=== PATIENT | male | born 1970 | race Caucasian/White ===

== ENCOUNTER 2016-05-18 06:15 | Emergency (ER) | payer MEDICARE ==
[2016-01-07 15:24] VITALS: BMI 22.9
[~2016-05-18 06:15] MED LIST: DILAUDID2 MG PO; FERROUS SULFAT325 MG PO; PROTONIX40 MG PO; TOPROL XL25 MG PO
[2016-05-18 07:03] LABS: BASOPHILS 0.2 % (0.0-2.0); EOSINOPHILS 3.4 % (0-7); HEMATOCRIT 32.8 % (42.0-54.0); HEMOGLOBIN 9.8 g/dL (13.5-17.5); IMMATURE GRANULOCYTES 0.2 % (0-5); LYMPHOCYTES 11.7 % (15-50); MCH 20.8 pg (26.0-34.0); MCHC 29.9 g/dL (31.0-37.0); MCV 69.6 fL (80.0-100.0); MEAN PLATELET VOLUME 8.6 fL (7.4-10.4); NEUTROPHILS 78.5 % (40-80); RBC 4.71 10x6/uL (4.20-6.10); RDW 16.2 % (11.5-14.5); WBC 12.8 10x3/uL (4.8-10.8)
[2016-05-18 07:05] LABS: PLATELET COUNT 379 10x3/uL (130-400)
[2016-05-18 07:16] LABS: INR 1.1 (0.85-1.17); PROTIME 14.1 SECONDS (11.6-15.0)
[2016-05-18 07:17] LABS: ALBUMIN 3.3 g/dL (3.4-5.0); ALKALINE PHOSPHATASE 148 U/L (46-116); ALT (SGPT) 18 U/L (10-68); AMYLASE - SERUM 52 U/L (25-115); CALC OSMOLALITY 274 mosm/kg (275-300); CALCIUM 9.4 mg/dL (8.5-10.1); CARBON DIOXIDE 29.6 mmol/L (21.0-32.0); CHLORIDE - SERUM 98 mmol/L (98-107); GLUCOSE 129 mg/dL (74-106); LIPASE 135 U/L (73-393); MAGNESIUM - SERUM 1.4 mg/dL (1.8-2.4); POTASSIUM - SERUM 3.1 mmol/L (3.5-5.1); PROTEIN - SERUM 7.8 g/dL (6.4-8.2); SODIUM 136 mmol/L (136-145); UREA NITROGEN 14 mg/dL (7-18); eGFR NON AFRICAN AMERICAN 85 mL/min (90-120)
== END 2016-05-18 08:13 | disposition home or self-care (01) ==
LOC: D.ER 06:15
PROVIDERS: Surgery
DX: K92.2 Gastrointestinal hemorrhage, unspecified (principal); K22.70 Barrett's esophagus without dysplasia; K27.9 Peptic ulcer, site unspecified, unspecified as acute or chronic, without hemorrhage or perforation

== ENCOUNTER 2016-11-12 10:43 | Emergency (ER) | payer MEDICARE ==
[2016-01-07 15:24] VITALS: BMI 22.9
[2016-11-12 11:15] LABS: BASOPHILS 0.3 % (0-2); EOSINOPHILS 1.3 % (0-7); HEMATOCRIT 35.1 % (42.0-54.0); HEMOGLOBIN 10.2 g/dL (13.5-17.5); IMMATURE GRANULOCYTES 0.2 % (0-5); LYMPHOCYTES 10.8 % (15-50); MCHC 29.1 g/dL (31.0-37.0); MCV 67.8 fL (80.0-100.0); MEAN PLATELET VOLUME 8.9 fL (7.4-10.4); NEUTROPHILS 78.4 % (40-80); RBC 5.18 10x6/uL (4.20-6.10); WBC 12.2 10x3/uL (4.8-10.8)
[2016-11-12 11:16] LABS: MCH 19.7 pg (26.0-34.0); PLATELET COUNT 579 10x3/uL (130-400)
[2016-11-12 12:14] LABS: ALBUMIN 3.6 g/dL (3.4-5.0); ALKALINE PHOSPHATASE 147 U/L (46-116); ALT (SGPT) 26 U/L (10-68); CALC OSMOLALITY 272 mosm/kg (275-300); CARBON DIOXIDE 36.2 mmol/L (21.0-32.0); CHLORIDE - SERUM 94 mmol/L (98-107); CREATINE KINASE 27 UL (21-232); CREATININE - SERUM 1.5 mg/dL (0.6-1.3); GLUCOSE 131 mg/dL (74-106); POTASSIUM - SERUM 3.5 mmol/L (3.5-5.1); PROTEIN - SERUM 8.6 g/dL (6.4-8.2); SODIUM 134 mmol/L (136-145); TROPONIN-I < 0.017 ng/mL (0.000-0.060); UREA NITROGEN 20 mg/dL (7-18); eGFR NON AFRICAN AMERICAN 53 mL/min (90-120)
[2016-11-12 12:15] LABS: CALCIUM 12.2 mg/dL (8.5-10.1)
[2016-11-12 12:15] LABS: AMYLASE - SERUM 48 U/L (25-115); LIPASE 129 U/L (73-393)
[2016-11-12 16:44] LABS: UDS - AMPHET POSITIVE QUAL (NEGATIVE); UDS - BARB NEGATIVE QUAL (NEGATIVE); UDS - BENZO NEGATIVE QUAL (NEGATIVE); UDS - COCAINE NEGATIVE QUAL (NEGATIVE); UDS - METH NEGATIVE QUAL (NEGATIVE); UDS - OPIATE POSITIVE QUAL (NEGATIVE); UDS - PCP NEGATIVE QUAL (NEGATIVE); UDS - THC NEGATIVE QUAL (NEGATIVE)
== END 2016-11-12 18:13 | disposition home or self-care (01) ==
LOC: D.ER 10:43
PROVIDERS: Emergency Medicine; Nurse Practitioner Family
DX: R07.89 Other chest pain (principal); E83.52 Hypercalcemia; F17.200 Nicotine dependence, unspecified, uncomplicated; I45.10 Unspecified right bundle-branch block

== ENCOUNTER 2017-01-12 17:59 | Emergency (ER) | payer SELFPAY ==
[2016-01-07 15:24] VITALS: BMI 22.9
[2017-01-12 18:30] LABS: BASOPHILS 0.5 % (0-2); EOSINOPHILS 1.8 % (0-7); HEMOGLOBIN 9.6 g/dL (13.5-17.5); IMMATURE GRANULOCYTES 0.1 % (0-5); MCHC 28.2 g/dL (31.0-37.0); MCV 65.3 fL (80.0-100.0); MEAN PLATELET VOLUME 8.5 fL (7.4-10.4); NEUTROPHILS 72.6 % (40-80); PLATELET COUNT 526 10x3/uL (130-400); RBC 5.21 10x6/uL (4.20-6.10); RDW 17.5 % (11.5-14.5); WBC 9.4 10x3/uL (4.8-10.8)
[2017-01-12 18:31] LABS: MCH 18.4 pg (26.0-34.0)
[2017-01-12 19:03] LABS: ALBUMIN 3.9 g/dL (3.4-5.0); ALKALINE PHOSPHATASE 189 U/L (46-116); ALT (SGPT) 19 U/L (10-68); AMYLASE - SERUM 55 U/L (25-115); BILIRUBIN - TOTAL 0.25 mg/dL (0.2-1.3); CALC OSMOLALITY 273 mosm/kg (275-300); CALCIUM 10.8 mg/dL (8.5-10.1); CARBON DIOXIDE 26.8 mmol/L (21.0-32.0); CHLORIDE - SERUM 98 mmol/L (98-107); CREATININE - SERUM 0.8 mg/dL (0.6-1.3); GLUCOSE 113 mg/dL (74-106); LIPASE 139 U/L (73-393); POTASSIUM - SERUM 3.9 mmol/L (3.5-5.1); SODIUM 136 mmol/L (136-145); UREA NITROGEN 16 mg/dL (7-18); eGFR NON AFRICAN AMERICAN > 90 mL/min (90-120)
[2017-01-12 20:02] LABS: APTT 33.6 SECONDS (22.8-39.4)
[2017-01-12 20:09] LABS: APPEARANCE HAZY (CLEAR); BILIRUBIN NEGATIVE (NEGATIVE); COLOR STRAW (YELLOW); GLUCOSE NEGATIVE (NEGATIVE); KETONE NEGATIVE (NEGATIVE); NITRITE NEGATIVE (NEGATIVE); PROTEIN NEGATIVE (NEGATIVE); UROBILINOGEN NORMAL (NORMAL)
[2017-01-12 20:18] LABS: UDS - AMPHET POSITIVE QUAL (NEGATIVE); UDS - BARB NEGATIVE QUAL (NEGATIVE); UDS - BENZO NEGATIVE QUAL (NEGATIVE); UDS - COCAINE NEGATIVE QUAL (NEGATIVE); UDS - OPIATE NEGATIVE QUAL (NEGATIVE); UDS - PCP NEGATIVE QUAL (NEGATIVE); UDS - THC POSITIVE QUAL (NEGATIVE)
== END 2017-01-12 20:48 | disposition home or self-care (01) ==
LOC: D.ER 17:59
PROVIDERS: Emergency Medicine; Family Medicine
DX: K27.9 Peptic ulcer, site unspecified, unspecified as acute or chronic, without hemorrhage or perforation (principal); K20.9 Esophagitis, unspecified; Z85.01 Personal history of malignant neoplasm of esophagus

== ENCOUNTER → 2017-08-02 12:45 | Outpatient (CLI) | payer OTHER ==
[2016-01-07 15:24] VITALS: BMI 22.9
== END | disposition home or self-care (01) ==
LOC: D.RAD 12:45
DX: Z02.71 Encounter for disability determination (principal)

== ENCOUNTER 2018-10-31 16:24 | Inpatient (IN) | payer MEDICARE ==
[2018-10-31] VITALS (10 sets, daily range): BP systolic 88–144; BP diastolic 58–83; BMI 24.2
[~2018-10-31] VITALS: Ht 177.8 cm; Wt 75.6 kg
[2018-10-31] MEDS ORDERED: CARAFATE1 G PO (16:30)
[2018-10-31] MEDS ORDERED: OMEPRAZOLE40 MG PO (16:31)
[2018-10-31 18:28] LABS: APPEARANCE CLEAR (CLEAR); BILIRUBIN NEGATIVE (NEGATIVE); COLOR YELLOW (YELLOW); GLUCOSE NEGATIVE (NEGATIVE); KETONE NEGATIVE (NEGATIVE); NITRITE NEGATIVE (NEGATIVE); PROTEIN NEGATIVE (NEGATIVE); SPECIFIC GRAVITY 1.015 (1.005-1.020); UROBILINOGEN NORMAL (NORMAL)
[2018-10-31 18:34] LABS: BASOPHILS 0.2 % (0-2); EOSINOPHILS 0.1 % (0-7); IMMATURE GRANULOCYTES 0.2 % (0-5); LYMPHOCYTES 7.5 % (15-50); MCHC 29.2 g/dL (31.0-37.0); MEAN PLATELET VOLUME 8.7 fL (7.4-10.4); MONOCYTES 8.2 % (2-11); NEUTROPHILS 83.8 % (40-80); PLATELET COUNT 532 10x3/uL (130-400); RBC 3.79 10x6/uL (4.20-6.10); RDW 20.1 % (11.5-14.5); WBC 14.2 10x3/uL (4.8-10.8)
[2018-10-31 18:35] LABS: MCH 19.3 pg (26.0-34.0)
[2018-10-31 18:40] LABS: HEMOGLOBIN 7.3 g/dL (13.5-17.5)
--- NOTE | 2018-10-31 19:05 | NUR ---
PT VOMITED ON SIDE OF BED AND FLOOR. LARGE AMOUNT OF BROWN VOMIT SEEN AROUND PT EDP MCKEON NOTIFIED. FURTHER ORDERS TO BE ENTERED.
[2018-10-31 19:13] LABS: ALBUMIN 3.2 g/dL (3.4-5.0); ALKALINE PHOSPHATASE 121 U/L (46-116); ALT (SGPT) 15 U/L (10-68); AMYLASE - SERUM 33 U/L (25-115); BILIRUBIN - TOTAL 0.32 mg/dL (0.2-1.3); CALC OSMOLALITY 280 mosm/kg (275-300); CALCIUM 8.1 mg/dL (8.5-10.1); CARBON DIOXIDE 31.4 mmol/L (21.0-32.0); CHLORIDE - SERUM 100 mmol/L (98-107); CREATININE - SERUM 0.8 mg/dL (0.6-1.3); GLUCOSE 121 mg/dL (74-106); LIPASE 110 U/L (73-393); POTASSIUM - SERUM 3.6 mmol/L (3.5-5.1); PROTEIN - SERUM 7.3 g/dL (6.4-8.2); SODIUM 138 mmol/L (136-145); UREA NITROGEN 23 mg/dL (7-18); eGFR NON AFRICAN AMERICAN > 90 mL/min (90-120)
[2018-10-31 19:14] LABS: TROPONIN-I < 0.017 ng/mL (0.000-0.060)
--- NOTE | 2018-10-31 19:38 | NUR ---
PT TO CT AT THIS TIME.
--- NOTE | 2018-10-31 20:10 | NUR ---
PT BACK FROM CT AT THIS TIME.
--- NOTE | 2018-10-31 20:56 | NUR ---
BLOOD TRANSFUSION STARTED AT 125 ML/HR. WITNESSED BY MARY ADAM.
--- NOTE | 2018-10-31 21:30 | NUR ---
REPORT CALLED TO MARY ALVARES IN THE ICU. BLOOD TRANSFUSING 250 ML/HR ON TRANSPORT.
--- NOTE | 2018-10-31 21:53 | NUR ---
RECEIVED PT VIA ER BED WITH RN AT BEDSIDE, PT AAOx4, C/O N/V, PT VOMITING LIQUID BROWN EMESIS AT THIS TIME, ALSO ABDOMINAL PAIN STATING CRAMPING SHARP PAIN STARTED ON RIGHT SIDE PROGRESSING TO LEFT AND NOW ALL ABDOMINAL QUADRANTS, STATES PAIN 8/10 ON NUMERIC PAIN SCALE, RT EJ 20g PIV INFUSING ZOFRAN AND PROTONIX GTT PER ORDERS DRSG C/D/I, LT AC 20g PIV INFIUSING 1 OF 2 PRBC,PT V/S B/P:117/73 (86) HR: SINUS TACH @ 110bpm SPO2: 98% ON RA RR:16bpm, REPOSITIONED IN BED FOR COMFORT, HOB ELEVATED, NPO PER ORDERS, ASSESSMENTS COMPLETE SEE FLOW SHEET FOR FURTHER, WILL CONTINUE TO MONITOR
[2018-11-01] VITALS (25 sets, daily range): BP systolic 86–142; BP diastolic 50–82; Ht 177.8 cm; Wt 75.6 kg
[2018-11-01 01:04] LABS: HEMOGLOBIN 7.5 g/dL (13.5-17.5)
--- NOTE | 2018-11-01 01:05 | NUR ---
INFUSION OF PROTONIX COMPLETE AT THIS TIME.
--- NOTE | 2018-11-01 01:30 | NUR ---
NITZA MCCARTHY APRN CALLED AND NOTIFIED OF [facility], NO ORDERS RECEIVED
--- NOTE | 2018-11-01 04:30 | NUR ---
CONSENTS FOR EGD WITH TIVA SIGNED BY PT WITH X2 RN AT BEDSIDE, CONSENTS PLACED IN CHART, NO QUESTIONS AT THIS TIME FROM PT
[2018-11-01 05:46] LABS: APTT 34.1 SECONDS (22.8-39.4); INR 1.19 (0.85-1.17); PROTIME 14.5 SECONDS (11.6-15.0)
[2018-11-01 05:54] LABS: ALBUMIN 2.6 g/dL (3.4-5.0); ALKALINE PHOSPHATASE 93 U/L (46-116); ALT (SGPT) 10 U/L (10-68); BILIRUBIN - TOTAL 0.59 mg/dL (0.2-1.3); CALC OSMOLALITY 280 mosm/kg (275-300); CALCIUM 7.3 mg/dL (8.5-10.1); CARBON DIOXIDE 28.1 mmol/L (21.0-32.0); CHLORIDE - SERUM 105 mmol/L (98-107); CREATININE - SERUM 0.7 mg/dL (0.6-1.3); GLUCOSE 107 mg/dL (74-106); MAGNESIUM - SERUM 1.5 mg/dL (1.8-2.4); PHOSPHOROUS 1.7 mg/dL (2.5-4.9); POTASSIUM - SERUM 3.5 mmol/L (3.5-5.1); PROTEIN - SERUM 6.1 g/dL (6.4-8.2); SODIUM 139 mmol/L (136-145); UREA NITROGEN 22 mg/dL (7-18); eGFR NON AFRICAN AMERICAN > 90 mL/min (90-120)
[2018-11-01 06:11] LABS: BASOPHILS 0.2 % (0-2); EOSINOPHILS 0.1 % (0-7); HEMATOCRIT 22.4 % (42.0-54.0); IMMATURE GRANULOCYTES 0.3 % (0-5); LYMPHOCYTES 12.7 % (15-50); MCH 21.1 pg (26.0-34.0); MCHC 30.4 g/dL (31.0-37.0); MEAN PLATELET VOLUME 8.7 fL (7.4-10.4); MONOCYTES 10.7 % (2-11); PLATELET COUNT 472 10x3/uL (130-400); RBC 3.23 10x6/uL (4.20-6.10); RDW 22.4 % (11.5-14.5); WBC 13.6 10x3/uL (4.8-10.8)
[2018-11-01 06:32] LABS: HEMOGLOBIN 6.8 g/dL (13.5-17.5); MCV 69.3 fL (80.0-100.0)
--- NOTE | 2018-11-01 06:39 | NUR ---
DR. HOWARD MILLAN R/T CRITICAL LAB Hgb 6.8
--- NOTE | 2018-11-01 06:46 | NUR ---
CALLED, UPDATE GIVEN, ORDERS RECEIVED TO TRANSFUSE 3 UNITS PRBC, LAB CALLED AND INFORMED THAT PT HAS ANTIBODY AND BLOOD WILL TAKE A MOMENT TO COMPLETE, NOTIFIED DAY SHIFT RN
--- NOTE | 2018-11-01 07:10 | NUR ---
REPORT RECEIVED. ASSESSMENT COMPLETE PER FLOW SHEET. GI TEAM AT BEDSIDE DR FOSTER AND DR LAWRENCE GIVEN UPDATE. NEW ORDERS RECIEVED
--- NOTE | 2018-11-01 09:20 | NUR ---
DR MANUEL CALLED BACK [facility]
--- NOTE | 2018-11-01 11:15 | NUR ---
REASSESSMENT COMPLETE PER FLOW SHEET. VSS. NO NEW CHANGES WILL CONTINUE TO MONITOR
--- NOTE | 2018-11-01 14:55 | NUR ---
BLOOD STARTED. PRE INFUSION VSS. WILL CONTINUE TO MONITOR
--- NOTE | 2018-11-01 15:13 | NUR ---
PATIENT STATED HE WAS IN PAIN. MORPHINE GIVEN.
--- NOTE | 2018-11-01 15:39 | NUR ---
JEISON AWARE OF CONSULT
--- NOTE | 2018-11-01 17:07 | NUR ---
picc line good to use now. PATIENT IS SLEEPING. EASILY AROUSED. ORIENTED. HOB 30. CALL LIGHT WITHIN REACH. REPLACING ELECTROLYTES. BLOOD GOING. VSS. NO COMPLAINTS OF SOB. WILL CONTINUE TO MONITOR PATIENT.
--- NOTE | 2018-11-01 19:13 | MORECARE ---
CASE MANAGEMENT DISCHARGE SUMMARY PATIENT: YANE JACOBSON MIROSLAVA UNIT: [id number] ADM DATE: 10/31/18 AGE: 48 : 66 SEX: M ROOM/BED: D.2302 AUTHOR: DANIELLA BRIONES PHYSICIAN: REFERRING PHYSICIAN: TORITO VIZCARRA MD DATE OF SERVICE: 11/01/18 Discharge Plan Patient Name: YANE JACOBSON [facility] [facility] 1970 Planned Disposition: Home or Self Care Anticipated Discharge Date: Discharge Date: Expected LOS: Initial Reviewer: [email or web address] Initial Review Date: 11/01/2018 Generated: 11/01/18 8:13 pm Patient Name: YANE JACOBSON Page [phone] at 1913 All edits/amendments must be made on the electronic document DICTATION DATE: 11/01/181912 DATA PROCESSING CONTROL CLERK: CYNTHIA 11/01/181912 RPT#: [id number] DC DATE: STATUS: ADM IN [facility] [address] [place] [address] END OF REPORT
--- NOTE | 2018-11-01 19:30 | NUR ---
PT A/OX4, VOICES NEEDS, O2 @ 6L VIA N/C, LEFT PICC INTACT WITH TPN @ 45 CC/HR AND ZOFRAN GTT@ 4.7 CC/HR, LEFT PIV INTACT WITH NS @ 75CC/HR AND PROTONIX GTT @ 10 CC/HR, RIGHT PIV INTACT WITH BLOOD TRANSFUSING, URINAL IN REACH, VITALS STABLE, WILL CONT TO MONITOR
--- NOTE | 2018-11-01 19:32 | MORECARE ---
CASE MANAGEMENT DISCHARGE SUMMARY PATIENT: YANE JACOBSON MIROSLAVA UNIT: [id number] ADM DATE: 10/31/18 AGE: 48 : 66 SEX: M ROOM/BED: D.2302 AUTHOR: DANIELLA BRIONES PHYSICIAN: REFERRING PHYSICIAN: TORITO VIZCARRA MD DATE OF SERVICE: 11/01/18 Discharge Plan Patient Name: YANE JACOBSON [facility] [facility] 1970 Planned Disposition: Home or Self Care Anticipated Discharge Date: Discharge Date: Expected LOS: Initial Reviewer: [email or web address] Initial Review Date: 11/01/2018 Generated: 11/01/18 8:31 pm DCPIA - Discharge Planning Initial Assessment Updated by [email or web address]: Erika Vazquez on 11/01/18 7:28 pm * Is the patient Alert and Oriented? Yes * How many steps to enter\exit or inside your home? * PCP NO PCP * Pharmacy [facility] * Preadmission Environment Home with Family * ADLs Independent * Equipment None * List name and contact numbers for known caregivers / representatives who currently or will assist patient after discharge: JAIR JACOBSON - DAUGHTER - [phone] * Verbal permission to speak to the caregivers and representatives has been obtained from the patient. Yes * Community resources currently utilized None * Additional services required to return to the preadmission environment? No * Can the patient safely return to the preadmission environment? Yes * Has this patient been hospitalized within the prior 30 days at any hospital? Yes Last DP export: 11/01/18 6:13 p Patient Name: YANE JACOBSON Page [phone] at 1932 All edits/amendments must be made on the electronic document DICTATION DATE: 11/01/181930 STONEWORKING SANDER: CYNTHIA 11/01/181930 RPT#: [id number] DC DATE: STATUS: ADM IN [facility] [address] [place] [address] END OF REPORT
--- NOTE | 2018-11-01 19:44 | MORECARE ---
CASE MANAGEMENT DISCHARGE SUMMARY PATIENT: YANE JACOBSON UNIT: [id number] ADM DATE: 10/31/18 AGE: 48 : 66 SEX: M ROOM/BED: D.2302 AUTHOR: ANALI,DOC PHYSICIAN: REFERRING PHYSICIAN: TORITO VIZCARRA MD DATE OF SERVICE: 11/01/18 Discharge Plan Patient Name: YANE JACOBSON Facility: [facility]:[place] : 1970 Planned Disposition: Home or Self Care Anticipated Discharge Date: Discharge Date: Expected LOS: Initial Reviewer: [email or web address] Initial Review Date: 11/01/2018 Generated: 11/01/18 8:44 pm DCP- Discharge Planning Updated by [email or web address]: Erika Vazquez on 11/01/18 6:[address] Patient Name: YANE JACOBSON Admission Status: ER Accout number: [id number] Admission Date: 10-31-2018 : 1970 Admission Diagnosis: Attending: EMILY VIZCARRA Current LOS: 1 Anticipated DC Date: Planned Disposition: Home or Self Care Primary Insurance: MEDICARE A & B Discharge Planning Comments: CM met with patient at bedside after explaining CM role and obtaining verbal consent. Patient lives at home with his daughter where he is independent with his care and plans to return there upon discharge. Patient feels this would be a safe discharge. CM discussed availability / needs of home health and medical equipment. Patient denies any discharge needs at this time. Patient states he will have his family drive him home upon discharge. CM will continue to follow and assist as needed with discharge planning / needs. Cyber Security Instructor: Erika Vazquez DCPIA - Discharge Planning Initial Assessment Updated by [email or web address]: Erika Vazquez on 11/01/18 7:28 pm * Is the patient Alert and Oriented? Yes * How many steps to enter\exit or inside your home? * PCP NO PCP * Pharmacy [facility] * Preadmission Environment Home with Family * ADLs Independent * Equipment None * List name and contact numbers for known caregivers / representatives who currently or will assist patient after discharge: JAIR JACOBSON - DAUGHTER - [phone] * Verbal permission to speak to the caregivers and representatives has been obtained from the patient. Yes * Community resources currently utilized None * Additional services required to return to the preadmission environment? No * Can the patient safely return to the preadmission environment? Yes * Has this patient been hospitalized within the prior 30 days at any hospital? Yes Last DP export: 11/01/18 6:32 p Patient Name: YANE JACOBSON Page [phone] at 1944 All edits/amendments must be made on the electronic document DICTATION DATE: 11/01/181943 WEAPONS DESIGNER: CYNTHIA 11/01/181943 RPT#: [id number] DC DATE: STATUS: ADM IN [facility] [address] [place] [address] END OF REPORT
--- NOTE | 2018-11-01 21:30 | NUR ---
PT RESTING QUIETLY, TRANSFUSION COMPLETED, NO DISTRESS
--- NOTE | 2018-11-01 23:28 | NUR ---
PT SLEEPING @ THIS TIME, VITALS STABLE
[2018-11-02] VITALS (14 sets, daily range): BP systolic 89–117; BP diastolic 48–75
--- NOTE | 2018-11-02 01:30 | NUR ---
PT REMAINS ASLEEP, VITALS STABLE
--- NOTE | 2018-11-02 03:20 | NUR ---
PT SLEEPING ON BACK WITH HOB @ 30 DEGREES, AROUSES EASILY, VITALS STABLE
[2018-11-02 04:07] LABS: BASOPHILS 0.5 % (0-2); EOSINOPHILS 1.7 % (0-7); HEMATOCRIT 23.7 % (42.0-54.0); HEMOGLOBIN 7.6 g/dL (13.5-17.5); IMMATURE GRANULOCYTES 0.3 % (0-5); LYMPHOCYTES 12.1 % (15-50); MCH 23.3 pg (26.0-34.0); MCHC 32.1 g/dL (31.0-37.0); MEAN PLATELET VOLUME 8.3 fL (7.4-10.4); MONOCYTES 8.2 % (2-11); NEUTROPHILS 77.2 % (40-80); RBC 3.26 10x6/uL (4.20-6.10); RDW 21.5 % (11.5-14.5); WBC 10.9 10x3/uL (4.8-10.8)
[2018-11-02 04:21] LABS: CALC OSMOLALITY 277 mosm/kg (275-300); CALCIUM 7.3 mg/dL (8.5-10.1); CARBON DIOXIDE 30.6 mmol/L (21.0-32.0); CHLORIDE - SERUM 104 mmol/L (98-107); CREATININE - SERUM 0.7 mg/dL (0.6-1.3); GLUCOSE 116 mg/dL (74-106); MAGNESIUM - SERUM 1.6 mg/dL (1.8-2.4); POTASSIUM - SERUM 3.3 mmol/L (3.5-5.1); SODIUM 139 mmol/L (136-145); eGFR NON AFRICAN AMERICAN > 90 mL/min (90-120)
[2018-11-02 04:22] LABS: MCV 72.7 fL (80.0-100.0); PLATELET COUNT 288 10x3/uL (130-400)
[2018-11-02 04:23] LABS: PHOSPHOROUS 2.6 mg/dL (2.5-4.9); UREA NITROGEN 10 mg/dL (7-18)
--- NOTE | 2018-11-02 05:20 | NUR ---
PT RESTING QUIETLY AFTER BATH, NO DISTRESS NOTED
--- NOTE | 2018-11-02 07:30 | NUR ---
DR MURRAY AT BEDSIDE. UPDATE GIVEN. PATIENT IS ALERT AND ORIENTED. NO DISTRESS NOTED. DENIES NEEDS. LUNGS CTA. PULSES PALP BILAT. CALL LIGHT WITHIN REACH. BED LOW AND LOCKED. DR MURRAY STATED CLEAR LIQUID DIET APPROPRIATE AT THIS TIME. VSS. WILL CONTINUE TO MONITOR.
--- NOTE | 2018-11-02 09:00 | NUR ---
PATIENT ALERT AND ORIENTED. CLEAR LIQUID DIET. GAVE 3 POPCICLES AND 2 CUPS OF CHICKEN BROTHS. PATIENT TOLERATED WELL. STILL ON ZOFRAN DRIP. VSS. TPN @50. HOB 45. CALL LIGHT WITHIN REACH. BED LOW AND LOCKED. WILL CONTINUE TO MONITOR.
--- NOTE | 2018-11-02 11:20 | NUR ---
PATIENT IS SLEEPING. AWOKE AT SPEECH. GAVE HIM A POPSICLE AND 2 APPLE JUICES. PATIENT DENIES PAIN AT THIS TIME. STATES MORPHINE HELPS WITH THE PAIN. HE DENIED A SPONGE BATH DUE TO THE FACT HE "WILL BE GOING TO THE FLOOR ANDN TAKE A SHOWER."
--- NOTE | 2018-11-02 13:30 | NUR ---
PATIENT IS SLEEPING. WARM BLANKET PROVIDED. CHLOROSEPTIC SPRAY PROVIDED. POPSICLE PROVIDED. PAIN MEDICINE PROVIDED. PAIN 8/. WILL CONTINUE TO MONITOR.
--- NOTE | 2018-11-02 17:35 | NUR ---
1603-RECEIVED REPORT FROM ICU. 1717-TO ROOM VIA WHEELCHAIR WITH LEFT UPPER ARM PICC. TPN, ZOFRAN, AND NS INFUSING. SCAB SEEN TO RIGHT LEON. CALL LIGHT IN USE.
--- NOTE | 2018-11-02 19:15 | NUR ---
REPORT RECEIVED, WILL CONTINUE POC. ION IS A/OX4, BEDFAST. NO S/S OF DISTRESS OBSERVED, RR EVEN AND UNLABORED ON ROOM AIR. IV TO RT WRIST SL, PATENT, DRSG C/D/I. PICC TO LT UPPER ARM INFUSING TPN, ZOFRAN, NS PER ORDERS, DRSG C/D/I. PATIENT IS ASKING FOR ABSOLUTELY ANYTHING THAT HE CAN HAVE TO EAT. EXPLAINED TO HIM THAT HE IS ON A CLEAR LIQUID DIET AND I COULD BRING HIM WHATEVER HE IS ALLOWED TO HAVE. CHKN BROTH, JELLO, POPCICLE GIVEN. PATIENT DENIES FURTHER NEEDS. CL IN REACH, BED LOCKED AND LOWERED. WILL CTM.
--- NOTE | 2018-11-02 23:29 | NUR ---
I have reviewed this patient and I concur with the Shift Assessment completed by the Licensed Practical Nurse today this shift.
--- NOTE | 2018-11-03 00:45 | NUR ---
PATIENT C/O PAIN, IV PAIN MED ADMINISTER PER ORDERS. WILL CTM.
[2018-11-03 04:00] VITALS: BP 118/69
--- NOTE | 2018-11-03 04:30 | NUR ---
PATIENT C/O PAIN, PRN MED ADMINISTERED. WILL CTM.
[2018-11-03 05:04] LABS: CALC OSMOLALITY 275 mosm/kg (275-300); CARBON DIOXIDE 28.1 mmol/L (21.0-32.0); CHLORIDE - SERUM 105 mmol/L (98-107); CREATININE - SERUM 0.7 mg/dL (0.6-1.3); GLUCOSE 104 mg/dL (74-106); MAGNESIUM - SERUM 1.6 mg/dL (1.8-2.4); PHOSPHOROUS 2.8 mg/dL (2.5-4.9); POTASSIUM - SERUM 3.7 mmol/L (3.5-5.1); SODIUM 139 mmol/L (136-145); eGFR NON AFRICAN AMERICAN > 90 mL/min (90-120)
[2018-11-03 05:09] LABS: UREA NITROGEN 7 mg/dL (7-18)
[2018-11-03 05:37] LABS: BASOPHILS 0.5 % (0-2); HEMATOCRIT 20.9 % (42.0-54.0); IMMATURE GRANULOCYTES 0.2 % (0-5); LYMPHOCYTES 19.4 % (15-50); MCH 22.9 pg (26.0-34.0); MCHC 31.6 g/dL (31.0-37.0); MCV 72.6 fL (80.0-100.0); MEAN PLATELET VOLUME 8.7 fL (7.4-10.4); MONOCYTES 10.2 % (2-11); NEUTROPHILS 64.7 % (40-80); PLATELET COUNT 321 10x3/uL (130-400); RBC 2.88 10x6/uL (4.20-6.10); RDW 22.1 % (11.5-14.5); WBC 8.3 10x3/uL (4.8-10.8)
[2018-11-03 05:42] LABS: HEMOGLOBIN 6.6 g/dL (13.5-17.5)
--- NOTE | 2018-11-03 05:51 | NUR ---
PAGED DR. LAWRENCE FOR CRITICAL HEMOGLOBIN 6.6
--- NOTE | 2018-11-03 06:04 | NUR ---
RECEIVED CALL BACK FROM DR. LAWRENCE, ORDERS GIVEN.
--- NOTE | 2018-11-03 07:56 | NUR ---
REPORT RECIEVED. PT LYING SEMI FOWLERS IN BED. PT WAS UNAWARE BREAKFAST WAS ON BED SIDE TABLE. PT HAS A L UPPER ARM PICC INFUSING TPN @ 50, ZOFRAN @ 4.7, AND NS @75. PT ALSO HAS A R FA PIV THAT IS SL. BED LOCKED AND IN LOWEST POSITION, CALL LIGHT WTIHIN REACH. WILL CTM
--- NOTE | 2018-11-03 08:03 | NUR ---
NUTRITION F/U CHART/LABS REVIEWED. CLEAR LIQUID DIET WITH TPN AT 50 CC/HR. WILL CONTINUE TO MONITOR LABS AND ADJUST TPN NEEDED. RD FOLLOWING
--- NOTE | 2018-11-03 08:50 | NUR ---
UNIT OF BLOOD INITATED BY GENO ROCHA RN AT THIS TIME. PRE TRANSFUSION VS 99.0, 136/70, 77, AND 16. WILL CTM
[2018-11-03 10:36] VITALS: BP 136/70
--- NOTE | 2018-11-03 19:05 | NUR ---
POST 2ND UNIT OF BLOOD PTS TEMP WAS 101.3, CALLED NITZA. HE INSTRUCTED ME TO GIVE TYLENOL. AND CONTINUE TO MONITOR PT.
--- NOTE | 2018-11-03 19:15 | NUR ---
REPORT RECEIVED, WILL CONTINUE POC. ELEVATED TEMP WAS REPORTED BY DAY SHIFT NURSE AND MEDS ADMINISTERED. PATIENT IS A LITTLE AGITATED AND C/O OF BEING HOT AND SWEATY. TEMP IN ROOM ADJUSTED. PICC LINE TO LT UPPER ARM IS INFUSING FLUIDS PER ORDERS, PATENT, DRSG C/D/I. IV TO RT FA IS SL, PATENT, DRSG C/D/I. IV TO RT JUGULAR IS SL, DRSG C/D/I. PATIENT IS C/O BEING HUNGRY, PROVIDED PATIENT WITH A VARIETY OF SNACKS THAT ADHERE TO HIS DIET. PATIENT DENIES FURTHER NEEDS AT THIS TIME. CL IN REACH, BED LOCKED AND LOWERED. WILL CTM.
[2018-11-03 20:00] VITALS: BP 113/62
--- NOTE | 2018-11-03 20:00 | NUR ---
PATIENT TEMP DOWN TO 99.6. PATIENT C/O BEING HUNGRY, MORE SNACK PROVIDED. WILL CTM.
--- NOTE | 2018-11-04 00:50 | NUR ---
PATIENT C/O PAIN, PRN PAIN MED ADMINISTERED. PATIENT ALSO STATES, "I'M STARVING, I'M ABOUT TO BREAK OUT OF HERE". BROUGHT PATIENT MULTIPLE SNACKS AND DRINKS THAT ADHERE TO HIS DIET. WILL CTM.
--- NOTE | 2018-11-04 01:00 | NUR ---
PATIENT WAS C/O IV TO RT SIDE OF NECK CAUSING PAIN, THREATENED TO PULL IT OUT HIMSELF. REMOVED IV WITH CATH TIP INTACT, APPLIED PRESSURE AND SECURED WITH 2X2 AND TAPE. WILL CTM.
--- NOTE | 2018-11-04 02:51 | NUR ---
PATIENT ATTEMPTING TO HAVE BM WITH SOME DIFFICULTY, SAID HE WAS AFRAID TO PUSH BECAUSE HE MAY, "RIP A WHOLE IN MY THROAT". PATIENT REQUESTED A STOOL SOFTENER. INFORMED HIM THAT IT WOULD BE PASSED ALONG TO DAY SHIFT AND HIS DOCTOR WOULD BE INFORMED HE HAS NO ORDERS FOR A STOOL SOFTENER. WILL CTM.
--- NOTE | 2018-11-04 03:29 | NUR ---
I have reviewed this patient and I concur with the Shift Assessment completed by the Licensed Practical Nurse today this shift.
[2018-11-04 04:00] VITALS: BP 121/63
--- NOTE | 2018-11-04 05:55 | NUR ---
PATIENT HAD A LARGE BM. SAYS HE NEEDS TO GO MORE, BUT FEELS BETTER.
[2018-11-04 06:16] LABS: BASOPHILS 0.6 % (0-2); EOSINOPHILS 5.9 % (0-7); IMMATURE GRANULOCYTES 0.3 % (0-5); LYMPHOCYTES 7.9 % (15-50); MCH 23.3 pg (26.0-34.0); MCHC 31.7 g/dL (31.0-37.0); MCV 73.5 fL (80.0-100.0); MEAN PLATELET VOLUME 9.2 fL (7.4-10.4); MONOCYTES 9.2 % (2-11); NEUTROPHILS 76.1 % (40-80); PLATELET COUNT 334 10x3/uL (130-400); RDW 21.3 % (11.5-14.5)
[2018-11-04 06:18] LABS: HEMATOCRIT 27.8 % (42.0-54.0); HEMOGLOBIN 8.8 g/dL (13.5-17.5); RBC 3.78 10x6/uL (4.20-6.10)
[2018-11-04 06:23] LABS: CALC OSMOLALITY 277 mosm/kg (275-300); CALCIUM 7.7 mg/dL (8.5-10.1); CARBON DIOXIDE 27.7 mmol/L (21.0-32.0); CHLORIDE - SERUM 105 mmol/L (98-107); CREATININE - SERUM 0.7 mg/dL (0.6-1.3); GLUCOSE 124 mg/dL (74-106); MAGNESIUM - SERUM 1.8 mg/dL (1.8-2.4); PHOSPHOROUS 2.3 mg/dL (2.5-4.9); POTASSIUM - SERUM 3.4 mmol/L (3.5-5.1); SODIUM 140 mmol/L (136-145); UREA NITROGEN 7 mg/dL (7-18); eGFR NON AFRICAN AMERICAN > 90 mL/min (90-120)
--- NOTE | 2018-11-04 06:55 | NUR ---
PATIENT C/O PAIN IN NECK AND ABDOMEN, ADMINISTERED PRN PAIN MED PER ORDERS. WILL CTM.
--- NOTE | 2018-11-04 07:10 | NUR ---
PT THIS AM UPSET ABOUT DIET AND GETTING CREAM OF WHEAT. PT GIVEN JELLO. WILL SPEAK WITH MD LATER ABOUT ADVANCING DIET. PT LAYING IN BED WATCHING TV ROOM AIR. LEFT UPPER ARM PICC NS AT 75 AND TPN 50. BED LOW. CL IN REACH.
[2018-11-04 07:53] VITALS: BP 125/71
--- NOTE | 2018-11-04 08:09 | NUR ---
NUTRITION F/U CHART/LABS REVIEWED. DIET ADVANCED TO FULL LIQUID. ADJUSTED TPN. WILL CONTINUE TO MONITOR LABS AND ADJUST NEEDED. PT MAY BENEFIT FROM PLACEMENT OF J TUBE FOR NUTRITION SUPPORT. RD FOLLOWING
[2018-11-04 12:11] VITALS: BP 115/58
--- NOTE | 2018-11-04 12:38 | NUR ---
DR. LAWRENCE NOT ROUNDING TILL WEDNESDAY. CALLED HIS OFFICE AND THEY STATED THEY ARE NOT SURE IF [facility] [employer] LABORER WILL ROUND. SPOKE WITH DR. ALCALA ABOUT THIS AND THAT PT IS WANTING HIS DIET ADVANCED FROM FULL LIQUID TO REGULAR. SHE STATED SHE WILL SEE. I VERBALIZED UNDERSTANDING.
--- NOTE | 2018-11-04 18:41 | NUR ---
PT STATES HE IS HAVING ACID REFLUX AND DOES NOT WANT TUMS AND HE CAN NOT TAKE MILK OF MAG. PT STATES WHAT HE TAKES AT HOME COMES IN A GREEN BOTTLE. SPOKE WITH NITZA LORD AND HE STATES TO GIVE A ONE TIME DOSE OF MYLANTA ABD IF THAT WORKS LET HIM KNOW AND HE WILL ORDER IT PRN. I VERBALIZED UNDERSTANDING AND WILL PASS THIS ON IN REPORT.
[2018-11-04 19:15] VITALS: BP 128/73
--- NOTE | 2018-11-04 19:15 | NUR ---
BEDSIDE REPORT COMPLETE. INTRODUCED SELF TO PT. PT SITTING UP IN BED ON PHONE. DENIES ANY NEEDS OR PAIN. ALERT AND ORIENTED X4. SHIFT ASSESSMENT COMPLETE. VS STABLE. GERARDO PICC INFUSING TPN @ 50ML/HR, NS @ 25ML/HR. SITE FREE FROM REDNESS OR SWELLING. DRESSING C/D/I. RIGHT FA SL. NO REDNESS OR SWELLING. FLUSHES WITHOUT DIFFICUTLY. DRESSING C/D/I. 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 CALL LIGHT AND WATER WITHIN REACH, FALL PRECAUTIONS IN PLACE. WILL CONTINUE TO MONITOR
--- NOTE | 2018-11-04 21:45 | NUR ---
FLUSHED RIGHT FOREARM IV WITHOUT DIFFICULTY. DURING MORPHINE ADMINISTRATION PT C/O BURNING, REDNESS AROUND SITE NOTICED. FLUSHED SITE WITH 3ML AND D/C IV WITH CATH TIP INTACT. HELD PRESSURE FOR 3 MIN UNTIL BLEEDING STOPPED.
[2018-11-05] VITALS (7 sets, daily range): BP systolic 124–160; BP diastolic 72–97
--- NOTE | 2018-11-05 00:15 | NUR ---
PT SITTING UP IN BED VISITING WITH FRIENDS QUIETLY. DENIES ANY NEEDS OR PAIN. WILL CONTINUE TO MONITOR
--- NOTE | 2018-11-05 01:58 | NUR ---
PT LYING IN BED EYES CLOSED RESTING QUIETLY
--- NOTE | 2018-11-05 05:20 | NUR ---
PT LYING IN BED ON LEFT SIDE, IN BED WITH PT RESTING QUIETLY.
--- NOTE | 2018-11-05 05:21 | NUR ---
PT LYING IN BED ON RIGHT SIDE EYES CLOSED RESTING QUIETLY.
[2018-11-05 06:52] LABS: BASOPHILS 0.4 % (0-2); EOSINOPHILS 6.5 % (0-7); HEMATOCRIT 28.4 % (42.0-54.0); HEMOGLOBIN 8.8 g/dL (13.5-17.5); IMMATURE GRANULOCYTES 0.2 % (0-5); MCH 23.2 pg (26.0-34.0); MCV 74.7 fL (80.0-100.0); MONOCYTES 16.1 % (2-11); NEUTROPHILS 57.8 % (40-80); PLATELET COUNT 318 10x3/uL (130-400); RDW 21.7 % (11.5-14.5); WBC 5.5 10x3/uL (4.8-10.8)
[2018-11-05 07:09] LABS: CALC OSMOLALITY 276 mosm/kg (275-300); CALCIUM 7.4 mg/dL (8.5-10.1); CARBON DIOXIDE 27.8 mmol/L (21.0-32.0); CHLORIDE - SERUM 105 mmol/L (98-107); CREATININE - SERUM 0.6 mg/dL (0.6-1.3); GLUCOSE 90 mg/dL (74-106); MAGNESIUM - SERUM 1.8 mg/dL (1.8-2.4); POTASSIUM - SERUM 4.1 mmol/L (3.5-5.1); SODIUM 140 mmol/L (136-145); UREA NITROGEN 8 mg/dL (7-18); eGFR NON AFRICAN AMERICAN > 90 mL/min (90-120)
[2018-11-05 07:10] LABS: PHOSPHOROUS 3.6 mg/dL (2.5-4.9)
--- NOTE | 2018-11-05 07:34 | NUR ---
ROUNDING DONE WITH PATIENT LAYING ON RIGHT SIDE, AROUSES EASILY. LEFT UPPER ARM PICC SEEN WITH C/D/I DRESSING. TPN INFUSING AT 50 CC/HR AND NS INFUSING AT 75 CC/HR. ON EP, K+ IS 4.1. ON ROOM AIR. RIGHT HAND IS MISSING ALL DIGITS EXCEPT THUMB. IV PAIN MEDS WAS GIVEN EARLY IN THIS SHIFT. WILL CPOC.
--- NOTE | 2018-11-05 08:36 | NUR ---
NUTRITION F/U CHART/LABS REVIEWED. PT VISIT. ASSISTED WITH MENU SELECTIONS. NOT EATING BREAKFAST, STATED HE WAS NOT FEELING WELL. WILL LABS AGAIN IN AM AND ADJUST TPN IF NEEDED. RD FOLLOWING
--- NOTE | 2018-11-05 08:39 | NUR ---
PATIENT STATES THAT HIS PAIN MEDICATION IS NOT HOLDING HIM. HE IS RECEIVING 2 MG OF MORPHINE EVERY 4 HOURS. HE IS NON COMPLIANT IN HIS EATING, WANTING WHOLE MILK INSTEAD OF 2 % HE IS ON A SOFT BLAND DIET. PAGE INTO [facility] APN FOR NEW ORDERS. 0427-[facility] APN TO CALL BACK WITH NEW PAIN MEDICATION ORDERS.
--- NOTE | 2018-11-05 10:30 | NUR ---
DR ALCALA HERE TO SEE PATIENT.
[2018-11-05] MEDS ORDERED: OMNICEF300 MG PO (10:35)
[2018-11-05] MEDS ORDERED: ZITHROMAX250 MG PO (10:36)
--- NOTE | 2018-11-05 10:39 | NUR ---
PATIENT MADE NPO FOR CT WITH CONTRAST. NORCO AND CARAFATE GIVEN WITH SIP OF WATER PRIOR TO MAKING NPO. PATIENT CHEWS HIS NORCO.
--- NOTE | 2018-11-05 11:19 | NUR ---
1107-TO CT VIA WHEELCHAIR. COMPLETE BED LINEN CHANGE DONE.
--- NOTE | 2018-11-05 11:29 | NUR ---
RETURNS FROM CT.
--- NOTE | 2018-11-05 11:31 | NUR ---
SALINE LOCK REMOVED WITH CATH TIP INTACT. VERBAL AND WRITTEN DISCHARGE INSTRUCTIONS GIVEN TO PATIENT AND SPOUSE. AMBULATED WITH THIS NURSE TO FRONT DOOR.
--- NOTE | 2018-11-05 11:59 | NUR ---
POC GLUCOSE IS 106, PER SLIDING SCALE NO COVERAGE. PATIENT IS MORE COMFORTABLE NOW AND I HAD TO WAKE HIM TO CHECK HIS BLOOD SUGAR.
--- NOTE | 2018-11-05 16:07 | NUR ---
PATIENT IS IN RESTROOM AT THIS TIME. STATES THAT HE HAD A SMALL BOWEL MOVEMENT (DID NOT CALL ME HE WAS ASKED TO). STATES THAT HE "FORGOT" AND THAT "IT DIDNT AMOUNT TO MUCH". AGAIN, I ASKED HIM TO NOTIFY THE NURSE WHEN HE GOES SO THAT WE CAN SEE IT.
--- NOTE | 2018-11-05 16:38 | NUR ---
PATIENT IS SITTING ON SIDE OF BED WHEN I WALK IN LEANING ON TRAY TABLE. STATES TO MOAN I WALK IN (HE WAS NOT WHEN I STOOD OUTSIDE THE DOOR). NORCO AND CARAFATE GIVEN, PATIENT IS CHEWING THE NORCO.
--- NOTE | 2018-11-05 18:38 | NUR ---
POC GLUCOSE IS 98. PATIENT IS WATCHING VIDEOS ON HIS CELL PHONE. STATES TO PASSING SOME GAS.
[2018-11-06 04:26] VITALS: BP 154/94
--- NOTE | 2018-11-06 07:11 | NUR ---
ROUNDING DONE WITH PATIENT COMPLAINING THAT HE IS "GOING TO THROW UP". ZOFRAN WAS GIVEN PER CLINICAL SAFETY MANAGER. LEFT UPPER ARM PICC WITH C/D/I DRESSING SEEN HAVING TPN INFUSING AT 50 CC/HR. ON 2L PER NC AT THIS TIME. ON EP, LAB VALUES ARE NOT BACK YET. WILL CONTINUE TO MONITOR. 0715-IV IS BEEPING, PATIENT IS SOUND ASLEEP, SNORING.
[2018-11-06 07:25] LABS: BASOPHILS 0.6 % (0-2); HEMATOCRIT 33.2 % (42.0-54.0); HEMOGLOBIN 10.5 g/dL (13.5-17.5); IMMATURE GRANULOCYTES 0.4 % (0-5); LYMPHOCYTES 9.4 % (15-50); MCH 23.6 pg (26.0-34.0); MCHC 31.6 g/dL (31.0-37.0); MCV 74.8 fL (80.0-100.0); MEAN PLATELET VOLUME 9.6 fL (7.4-10.4); MONOCYTES 8.6 % (2-11); RBC 4.44 10x6/uL (4.20-6.10); RDW 21.8 % (11.5-14.5)
[2018-11-06 07:32] LABS: PLATELET COUNT 414 10x3/uL (130-400); WBC 11.4 10x3/uL (4.8-10.8)
[2018-11-06 07:42] LABS: CALC OSMOLALITY 274 mosm/kg (275-300); CALCIUM 8.7 mg/dL (8.5-10.1); CARBON DIOXIDE 31.9 mmol/L (21.0-32.0); CHLORIDE - SERUM 99 mmol/L (98-107); CREATININE - SERUM 0.7 mg/dL (0.6-1.3); GLUCOSE 110 mg/dL (74-106); MAGNESIUM - SERUM 1.9 mg/dL (1.8-2.4); PHOSPHOROUS 4.3 mg/dL (2.5-4.9); POTASSIUM - SERUM 4.5 mmol/L (3.5-5.1); SODIUM 137 mmol/L (136-145); eGFR NON AFRICAN AMERICAN > 90 mL/min (90-120)
[2018-11-06 07:50] LABS: UREA NITROGEN 13 mg/dL (7-18)
[2018-11-06 07:56] VITALS: BP 126/72
--- NOTE | 2018-11-06 08:32 | NUR ---
RADIOLOGY HERE FOR XRAY.
--- NOTE | 2018-11-06 09:08 | NUR ---
ENCOURAGED PATIENT TO GET UP AND WALK IN HALLWAY, TO TAKE A SHOWER AND WASH HAIR. HE REFUSES. I TOLD HIM THAT WE COULD ASK THE DOCTOR FOR SOME MIRALAX OR MAG CITRATE TO GET HIS BOWELS MOVING OR SOME PRUNE JUICE. HE HAS REFUSED THE JUICE AND DOES NOT WANT TO DRINK THE OTHER. I TOLD HIM WE COULD ASK FOR A GASTROGRAPHIN EXAM TO CLEAR HIS BOWELS OUT. HE AGAIN REPLIED "NO".
--- NOTE | 2018-11-06 09:51 | NUR ---
PATIENT THREW UP IN THE FLOOR OF FOOD PARTICLES, THERE IS SOME ALSO ON THE SIDE OF HIS BED ON THE LINENS. I ASKED THAT HE PLEASE GET UP SO THAT I CAN CHANGE HIS BED OR ROLL TO THE SIDES FOR IT TO BE CHANGED. PATIENT JUMPED OUT OF THE BED, ANGERILY LIKE, AND STATES THAT HE AND I ARE NOT "GETTING ALONG TODAY". I TOLD HIM THAT I JUST WANTED TO CLEAN HIS LINENS SINCE HE HAD PUKE ON THEM. I ALSO TOLD HIM THAT I CAN MAKE HIM NPO UNTIL HE SEES THE DOCTOR HE CAN NOT KEEP ANYTHING DOWN AND HE WAS NOT VOMITING YESTERDAY. CALL PLACED INTO [facility] FOR DOCTOR TO CALL ME BACK AND TO SEE IF I CAN CHANGE HIS PAIN MEDS TO IV. DR VIZCARRA IS BRASS CUTTER. AWAITING CALL BACK.
--- NOTE | 2018-11-06 10:09 | NUR ---
DR ALCALA TO CALL BACK WITH NEW ORDERS. THESE ARE REVIEWED WITH THE PATIENT.
--- NOTE | 2018-11-06 10:39 | NUR ---
SOAP CAITLYN ENEMA GIVEN ALONG WITH OTHER NEW ORDERS. INSTRUCTED PATIENT TO HOLD ENEMA LONG HE CAN. STATES TO UNDERSTANDING. WILL CHANGE BED LINENS AGAIN WHEN ALL DONE.
--- NOTE | 2018-11-06 11:07 | NUR ---
NUTRITION F/U CHART/LABS REVIEWED. TPN ADJUSTED AND RENEWED. ADDED MAG AND PHOS TO AM LAB DRAW. WILL CONTINUE TO MONITOR LABS AND ADJUST TPN NEEDED. RD FOLLOWING
--- NOTE | 2018-11-06 12:12 | NUR ---
LINENS CHANGED AND PATIENT IS UP TO SHOWER. LEFT UPPER ARM IS SALINE LOCK AT THIS TIME. FLUSHED WITH 20 CC NS TO EACH LUMEN.
[2018-11-06 12:38] VITALS: BP 146/95
--- NOTE | 2018-11-06 12:57 | NUR ---
DR MANUEL IN TO SEE PATIENT. NEW ORDERS.
--- NOTE | 2018-11-06 14:16 | NUR ---
PATIENT LAYING IN BED WITH TOWEL OVER HEAD FROM SHOWER. BRUSH AND COMB OFFERED AND GIVEN. PATIENT IS INSTRUCTED TO FINISH THE MAG CITRATE IN THE CUP. STATES TO UNDERSTANDING.
--- NOTE | 2018-11-06 14:42 | NUR ---
PATIENT IS RESTING WITH EYES CLOSED, SNORING. APPEARS PAIN FREE AT THIS TIME.
[2018-11-06 16:11] VITALS: BP 160/95
--- NOTE | 2018-11-06 17:43 | NUR ---
NO FURTHER BOWEL MOVEMENTS TODAY, HAS NOT ASKED FOR PAIN MEDS SINCE IV MORPHINE GIVEN ONE TIME DOSE AND IV REGLAN BEING GIVEN. WILL CPOC.
--- NOTE | 2018-11-06 18:32 | NUR ---
PATIENT HAS NOT BEEN UP AMBULATING TODAY ASKED. HE GOT INTO THE SHOWER AND STOOD AT SIDE OF BED WHILE I CHANGED THE LINENS.
--- NOTE | 2018-11-06 19:00 | NUR ---
PATIENT RESTING IN BED AND DENIES NEEDS AT THIS TIME. BED IN LOWEST POSITION AND CALL LIGHT WITHIN REACH. ENCOURAGED THE PATIENT TO CALL IF HE HAS NEEDS. WILL CONTINUE TO MONITOR.
[2018-11-06 19:56] VITALS: BP 145/87
[2018-11-07 04:10] VITALS: BP 106/60
--- NOTE | 2018-11-07 07:05 | NUR ---
PATIENT RECIEVED FROM PREVIOUS SHIFT RESTING IN BED, DENIES NEEDS OR C/O AT THIS TIME. CL IN REACH
[2018-11-07 07:15] LABS: BASOPHILS 0.2 % (0-2); EOSINOPHILS 1.8 % (0-7); HEMOGLOBIN 10.4 g/dL (13.5-17.5); IMMATURE GRANULOCYTES 0.3 % (0-5); LYMPHOCYTES 9.2 % (15-50); MCH 23.6 pg (26.0-34.0); MCHC 31.5 g/dL (31.0-37.0); MEAN PLATELET VOLUME 9.5 fL (7.4-10.4); MONOCYTES 9.5 % (2-11); PLATELET COUNT 448 10x3/uL (130-400); RDW 22.3 % (11.5-14.5)
[2018-11-07 07:43] VITALS: BP 112/72
[2018-11-07 07:56] LABS: ALBUMIN 2.9 g/dL (3.4-5.0); ALKALINE PHOSPHATASE 117 U/L (46-116); ALT (SGPT) 25 U/L (10-68); BILIRUBIN - TOTAL 0.36 mg/dL (0.2-1.3); CALC OSMOLALITY 272 mosm/kg (275-300); CALCIUM 8.6 mg/dL (8.5-10.1); CARBON DIOXIDE 29.7 mmol/L (21.0-32.0); CHLORIDE - SERUM 99 mmol/L (98-107); CREATININE - SERUM 0.7 mg/dL (0.6-1.3); GLUCOSE 97 mg/dL (74-106); MAGNESIUM - SERUM 2.1 mg/dL (1.8-2.4); PHOSPHOROUS 4.1 mg/dL (2.5-4.9); POTASSIUM - SERUM 3.9 mmol/L (3.5-5.1); PROTEIN - SERUM 7.2 g/dL (6.4-8.2); SODIUM 136 mmol/L (136-145); UREA NITROGEN 15 mg/dL (7-18); eGFR NON AFRICAN AMERICAN > 90 mL/min (90-120)
--- NOTE | 2018-11-07 14:44 | NUR ---
Nutrition Follow-up: TPN order and labs reviewed. Current TPN is appropriate. Pt reports some pain and vomited yesterday. Pt gave several food preferences for RD to enter into chart for kitchen staff. Previously eating 75-100% of meals, has been 0% recently. Will continue to provide selective menu and honor food preferences. Will monitor TPN and labs. RD Following.
--- NOTE | 2018-11-07 18:55 | NUR ---
PATIENT RESTING IN BED WITH NO S/S OF DISTRESS. BROUGHT PATIENT A SNACK PER HIS REQUEST. PATIENT DENIES OTHER NEEDS AT THIS TIME. BED IN LOWEST POSITION AND CALL LIGHT WITHIN REACH. ENCOURAGED THE PATIENT TO CALL IF HE HAS NEEDS. WILL CONTINUE TO MONITOR.
[2018-11-07 19:44] VITALS: BP 114/62
[2018-11-08 00:45] VITALS: BP 126/77
[2018-11-08 06:01] VITALS: BP 181/62
[2018-11-08 06:47] LABS: BASOPHILS 0.7 % (0-2); EOSINOPHILS 3.6 % (0-7); HEMATOCRIT 31.8 % (42.0-54.0); HEMOGLOBIN 9.9 g/dL (13.5-17.5); IMMATURE GRANULOCYTES 0.7 % (0-5); LYMPHOCYTES 18.6 % (15-50); MCH 23.3 pg (26.0-34.0); MCHC 31.1 g/dL (31.0-37.0); MEAN PLATELET VOLUME 9.5 fL (7.4-10.4); MONOCYTES 11.9 % (2-11); NEUTROPHILS 64.5 % (40-80); PLATELET COUNT 519 10x3/uL (130-400); RBC 4.24 10x6/uL (4.20-6.10); RDW 22.1 % (11.5-14.5); WBC 10.7 10x3/uL (4.8-10.8)
[2018-11-08 07:00] LABS: ALKALINE PHOSPHATASE 113 U/L (46-116); ALT (SGPT) 31 U/L (10-68); BILIRUBIN - TOTAL 0.23 mg/dL (0.2-1.3); CALC OSMOLALITY 277 mosm/kg (275-300); CALCIUM 8.9 mg/dL (8.5-10.1); CARBON DIOXIDE 29.5 mmol/L (21.0-32.0); CHLORIDE - SERUM 101 mmol/L (98-107); CREATININE - SERUM 0.8 mg/dL (0.6-1.3); GLUCOSE 90 mg/dL (74-106); POTASSIUM - SERUM 4.3 mmol/L (3.5-5.1); PROTEIN - SERUM 7.3 g/dL (6.4-8.2); SODIUM 138 mmol/L (136-145); eGFR NON AFRICAN AMERICAN > 90 mL/min (90-120)
[2018-11-08 07:01] LABS: UREA NITROGEN 19 mg/dL (7-18)
[2018-11-08 07:28] VITALS: BP 116/70
--- NOTE | 2018-11-08 07:43 | NUR ---
ROUNDING DONE WITH PATIENT HAVING NO NEEDS VOICED AT THIS TIME. STATES THAT HE STILL NEEDS TO HAVE A BM EVEN THOUGH HE HAD ONE LAST NIGHT AND LARGE ONE YESTERDAY FROM REPORT. LEFT UPPER ARM PICC SEEN WITH TPN INFUSING AT 50 CC/HR. ON EP, K+ IS 4.3. ON ROOM AIR. WILL CPOC.
--- NOTE | 2018-11-08 08:54 | NUR ---
SMALL BROWN BOWEL MOVEMENT IN TOLIET. PATIENT IS FEELING BETTER THIS AM HE STATES.
[2018-11-08 09:04] LABS: PHOSPHOROUS 4.5 mg/dL (2.5-4.9)
[2018-11-08] MEDS ORDERED: PROTONIX40 MG PO (09:33)
[2018-11-08 11:00] VITALS: BP 110/69
--- NOTE | 2018-11-08 13:02 | NUR ---
AWAITING PICC LINE REMOVAL FOR DISCHARGE. I CALLED REBECCA FONSECA RN UNIT MANAGER FOR REMOVAL.
--- NOTE | 2018-11-08 14:14 | NUR ---
DUE TO PT BEING DC, ORDER RECEIVED FOR PICC LINE REMOVAL. ACCORDING TO VASCULAR ACCESS NOTES, PICC IS 42 CMS LONG AND IN L UPPER ARM. INTRODUCTION OF MYSELF AND PURPOSE AND PROCEDURE EXPLAINED TO PT AND FAMILY. BOTH VERBALIZE UNDERSTANDING. HANDS WASHED AND GLOVES DONNED. CONFIRMED SITE. DRESSING REMOVED WITH NO SIGNS OF INFECTION. SITE CLEANED WITH BETADINE. PT INSTRUCTED TO DEEP BREATH, HOLD IT AND BEAR DOWN WHILE LINE IS BEING REMOVED 1 CM AT A TIME. LINE SUCCESSFULLY REMOVED AT 42 CMS WITH TIP INTACT. NO SIGNS OF INFECTION ON TIP. PRESSURE HELD FOR 5 MINS. THEN BETADINE OINT APPLIED AND DRESSING OF 2X2S AND TEGADERM APPLIED. PT DEMETRIO PROCEDURE WELL. INSTRUCTIONS ON SIGNS OF INFECTION AND DRESSING GIVEN TO PT AND PT UNDERSTANDS.
--- NOTE | 2018-11-08 14:49 | NUR ---
VERBAL AND WRITTEN DISCHARGE INSTRUCTIONS GIVEN TO PATIENT. PATIENT TOOK HIS ELECTRIC GUITAR AND AMP WITH HIM THAT WAS BROUGHT TO HIM THIS AM. DISCHARGED HOME VIA AMBULATION.
--- NOTE | 2018-11-08 18:12 | MORECARE ---
CASE MANAGEMENT DISCHARGE SUMMARY PATIENT: YANE JACOBSON UNIT: [id number] ADM DATE: 10/31/18 AGE: 48 : [birth year] SEX: M ROOM/BED: D.1211 AUTHOR: DANIELLA BRIONES PHYSICIAN: REFERRING PHYSICIAN: TORITO VIZCARRA MD DATE OF SERVICE: 11/08/18 Discharge Plan Patient Name: YANE JACOBSON Facility: [facility]:[place] : 1970 Planned Disposition: Home or Self Care Anticipated Discharge Date: Discharge Date: 11/08/2018 Expected LOS: Initial Reviewer: [email or web address] Initial Review Date: 11/01/2018 Generated: 11/08/18 7:12 pm Comments DCP- Discharge Planning Updated by [email or web address]: Erika Vazquez on 11/08/18 5:[address] Patient Name: YANE JACOBSON Encounter No: [id number] : 1970 Primary Insurance: MEDICARE A & B Anticipated DC Date: Planned Disposition: Home or Self Care External Planned Provider: : Anay/Aletha REYES 11/08/18 @ 1125 DCP follow-up note: Patient and family in agreement with discharge plan. No changes to plan. Case management will follow and assist as needed. Erika Vazquez DCP- Discharge Planning Updated by [email or web address]: Erika Vazquez on 11/01/18 6:[address] Patient Name: YANE JACOBSON Admission Status: ER Accout number: [id number] Admission Date: 10-31-2018 : 1970 Admission Diagnosis: Attending: EMILY VIZCARRA Current LOS: 1 Anticipated DC Date: Planned Disposition: Home or Self Care Primary Insurance: MEDICARE A & B Discharge Planning Comments: CM met with patient at bedside after explaining CM role and obtaining verbal consent. Patient lives at home with his daughter where he is independent with his care and plans to return there upon discharge. Patient feels this would be a safe discharge. CM discussed availability / needs of home health and medical equipment. Patient denies any discharge needs at this time. Patient states he will have his family drive him home upon discharge. CM will continue to follow and assist as needed with discharge planning / needs. Slag Dumper: Erika Vazquez DCPIA - Discharge Planning Initial Assessment Updated by [email or web address]: Erika Vazquez on 11/01/18 7:28 pm * Is the patient Alert and Oriented? Yes * How many steps to enter\exit or inside your home? * PCP NO PCP * Pharmacy [facility] * Preadmission Environment Home with Family * ADLs Independent * Equipment None * List name and contact numbers for known caregivers / representatives who currently or will assist patient after discharge: JAIR JACOBSON - DAUGHTER - [phone] * Verbal permission to speak to the caregivers and representatives has been obtained from the patient. Yes * Community resources currently utilized None * Additional services required to return to the preadmission environment? No * Can the patient safely return to the preadmission environment? Yes * Has this patient been hospitalized within the prior 30 days at any hospital? 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
== END 2018-11-08 14:53 | disposition home or self-care (01) | DRG 380 ==
LOC: D.ER 16:24 → D.M3 20:52 → D.ICU 20:52 → D.M3 11-02 17:27
PROVIDERS: Family Medicine; Internal Medicine Gastroenterology; ADMIT Emergency Medicine; ATTEND Emergency Medicine
PROC: 02HV33Z Insertion of Infusion Device into Superior Vena Cava, Percutaneous Approach (ICD-10-PCS; 2018-11-01)
PROC: B548ZZA Ultrasonography of Superior Vena Cava, Guidance (ICD-10-PCS; 2018-11-01)
PROC: 0DJ08ZZ Inspection of Upper Intestinal Tract, Via Natural or Artificial Opening Endoscopic (ICD-10-PCS; principal; 2018-11-01 07:25)
DX: K22.11 Ulcer of esophagus with bleeding (principal); J18.1 Lobar pneumonia, unspecified organism; N17.9 Acute kidney failure, unspecified; D50.9 Iron deficiency anemia, unspecified; I10 Essential (primary) hypertension; K59.00 Constipation, unspecified; I25.10 Atherosclerotic heart disease of native coronary artery without angina pectoris; K21.9 Gastro-esophageal reflux disease without esophagitis

== ENCOUNTER 2019-01-21 10:32 | Inpatient (IN) | payer MEDICARE ==
[~2019-01-21] VITALS: Ht 177.8 cm; Wt 75.0 kg
[~2019-01-21 10:32] MED LIST changes: +CARAFATE1 G PO; +OMEPRAZOLE40 MG PO; +OMNICEF300 MG PO; +ZITHROMAX250 MG PO
[2019-01-21 11:19] LABS: APTT 23.2 SECONDS (22.8-39.4); INR 0.87 (0.85-1.17); PROTIME 11.4 SECONDS (11.6-15.0)
[2019-01-21 11:29] LABS: EOSINOPHILS 1.2 % (0-7); HEMATOCRIT 40.6 % (42.0-54.0); IMMATURE GRANULOCYTES 0.2 % (0-5); LYMPHOCYTES 18.2 % (15-50); MCH 20.8 pg (26.0-34.0); MCHC 29.6 g/dL (31.0-37.0); MCV 70.4 fL (80.0-100.0); MEAN PLATELET VOLUME 8.8 fL (7.4-10.4); NEUTROPHILS 70.4 % (40-80); RBC 5.77 10x6/uL (4.20-6.10); RDW 17.6 % (11.5-14.5); WBC 9.2 10x3/uL (4.8-10.8)
[2019-01-21 11:30] LABS: PLATELET COUNT 408 10x3/uL (130-400)
--- NOTE | 2019-01-21 11:30 | NUR ---
STOOL OF OCCULT BLOOD - POS (+).
[2019-01-21 11:37] LABS: CALC OSMOLALITY 277 mosm/kg (275-300); CALCIUM 9.7 mg/dL (8.5-10.1); CARBON DIOXIDE 28.7 mmol/L (21.0-32.0); CHLORIDE - SERUM 99 mmol/L (98-107); CREATININE - SERUM 0.7 mg/dL (0.6-1.3); GLUCOSE 100 mg/dL (74-106); POTASSIUM - SERUM 4.3 mmol/L (3.5-5.1); SODIUM 140 mmol/L (136-145); UREA NITROGEN 10 mg/dL (7-18); eGFR NON AFRICAN AMERICAN > 90 mL/min (90-120)
[2019-01-21 11:43] LABS: ALKALINE PHOSPHATASE 164 U/L (46-116); ALT (SGPT) 24 U/L (10-68); BILIRUBIN - TOTAL 0.24 mg/dL (0.2-1.3); LIPASE 152 U/L (73-393); PROTEIN - SERUM 8.7 g/dL (6.4-8.2)
--- NOTE | 2019-01-21 13:56 | NUR ---
EXPLAIN TO PT THAT HE WILL HAVE TO BE TRANSFERRED.
--- NOTE | 2019-01-21 14:39 | NUR ---
[facility] UNABLE TO TAKE PT. SO PT TO BE ADMITTED TO HOSPITAL.
[2019-01-21 15:24] VITALS: BP 191/116; Ht 177.8 cm; Wt 75.0 kg
--- NOTE | 2019-01-21 15:44 | NUR ---
RECEIVED TO ROOM BLOOD PRESSURE 196/120. NO S/S OF HTN AT THIS TIME WITH SIVA LORD NOTIFIED.
[2019-01-21] MEDS ORDERED: METOPROLOL TART50 MG PO (15:45)
[2019-01-21 16:37] LABS: CKMB 0.6 U/L (0.0-3.6); CREATINE KINASE 49 UL (21-232); TROPONIN-I < 0.017 ng/mL (0.000-0.060)
[2019-01-21 16:48] LABS: % SATURATION 3 % (15-55); IRON 20 ug/dl (35-150); TOTAL IRON BIND CAPACITY 507 ug/dl (260-445)
[2019-01-21 16:53] LABS: UNSAT IRON BIND CAPACITY 487 ug/dl (150-375)
[2019-01-21 17:00] VITALS: BP 161/91
--- NOTE | 2019-01-21 19:00 | NUR ---
BEDSIDE REPORT RECEIVED AND CARE OF PT ASSUMED. PT LYING IN MID CAMPBELL'S POSITION WITH EYES CLOSED. IV TO LEFT FA PATENT WITH PROTONIX INFUSING AT 10 ML/HR. WILL MONITOR FOR NEEDS.
--- NOTE | 2019-01-21 19:36 | NUR ---
[facility] MEDICAITONS GIVEN. ENCOURAGING PT TO INCREASE FLUIDS INTAKE. INFORMED PT THAT WE NEED A URINE SAMPLE TO SEND TO LAB AT HIS NEXT VOID.
[2019-01-21 19:41] VITALS: BP 132/78
[2019-01-21 21:29] LABS: CKMB 0.7 U/L (0.0-3.6); CREATINE KINASE 40 UL (21-232)
[2019-01-21 21:36] LABS: TROPONIN-I < 0.017 ng/mL (0.000-0.060)
--- NOTE | 2019-01-21 23:22 | NUR ---
PT SLEEPING IN LOW CAMPBELL'S POSITION....SPOUSE IS IN BED WITH HIM AT THIS TIME. WILL CONTINUE TO MONITOR FOR NEEDS.
[2019-01-22 00:42] VITALS: BP 113/74
[2019-01-22 04:48] VITALS: BP 112/72
[2019-01-22 05:46] LABS: BASOPHILS 0.9 % (0-2); EOSINOPHILS 4.4 % (0-7); HEMATOCRIT 35.9 % (42.0-54.0); HEMOGLOBIN 10.3 g/dL (13.5-17.5); IMMATURE GRANULOCYTES 0.1 % (0-5); LYMPHOCYTES 21.3 % (15-50); MCH 20.3 pg (26.0-34.0); MCHC 28.7 g/dL (31.0-37.0); MCV 70.7 fL (80.0-100.0); MEAN PLATELET VOLUME 8.8 fL (7.4-10.4); NEUTROPHILS 63.3 % (40-80); PLATELET COUNT 489 10x3/uL (130-400); RBC 5.08 10x6/uL (4.20-6.10); RDW 17.6 % (11.5-14.5); WBC 8.1 10x3/uL (4.8-10.8)
--- NOTE | 2019-01-22 06:05 | NUR ---
PT HASN'T VOIDED THIS SHIFT, DESPITE NUMERUS ATTEMPTS TO GET HIM TO TRY TO URINATE. BLADDER SCANNER REVEALED 687 RETAINED URINE. WENT TO DO IN AND OUT CATH AND PT JUMPED OUT OF BED AND STARTED THREATENING AND YELLING AT THIS NURSE.
--- NOTE | 2019-01-22 06:12 | NUR ---
SENT MALE MANAGER STYLE IN ROOM TO ASSIST PT....TRIED TO USE URINAL WITHOUT SUCCESS. PT MAD AND DOSN'T WANT THIS NURSE BACK IN HIS ROOM. WILL ASSIGN ANOTHER NURSE TO PT.
[2019-01-22 06:23] LABS: ALBUMIN 3.4 g/dL (3.4-5.0); ALKALINE PHOSPHATASE 144 U/L (46-116); ALT (SGPT) 20 U/L (10-68); BILIRUBIN - TOTAL 0.37 mg/dL (0.2-1.3); CALC OSMOLALITY 274 mosm/kg (275-300); CALCIUM 8.9 mg/dL (8.5-10.1); CARBON DIOXIDE 28.7 mmol/L (21.0-32.0); CHLORIDE - SERUM 103 mmol/L (98-107); CKMB 0.4 U/L (0.0-3.6); CREATINE KINASE 31 UL (21-232); CREATININE - SERUM 0.9 mg/dL (0.6-1.3); GLUCOSE 91 mg/dL (74-106); MAGNESIUM - SERUM 1.9 mg/dL (1.8-2.4); POTASSIUM - SERUM 4.2 mmol/L (3.5-5.1); PROTEIN - SERUM 7.2 g/dL (6.4-8.2); SODIUM 138 mmol/L (136-145); TROPONIN-I < 0.017 ng/mL (0.000-0.060); UREA NITROGEN 11 mg/dL (7-18); eGFR NON AFRICAN AMERICAN > 90 mL/min (90-120)
--- NOTE | 2019-01-22 08:00 | NUR ---
ALERT AND ORIENTED X4. ABDOMEN NONTENTDER WITH BS NOTED X4 AND STATES HAS BEEN HAVING FLATULANCE. IV TO LT. F/A WITH PROTONIX INFUSING AT PRESCRIBED RATE. DENIES ANY ESOPHOGEAL PAIN AT THIS TIME WITH NO VOMITING NOTED. LUNGS CTA AND HRRR. ENCOURAGED TO USE CALL LIGHT FOR ASSSIT.
[2019-01-22 08:02] VITALS: BP 121/64
[2019-01-22 11:36] VITALS: BP 74/44; BP 98/64
[2019-01-22 13:15] LABS: APPEARANCE CLEAR (CLEAR); BILIRUBIN NEGATIVE (NEGATIVE); COLOR YELLOW (YELLOW); GLUCOSE NEGATIVE (NEGATIVE); KETONE NEGATIVE (NEGATIVE); NITRITE NEGATIVE (NEGATIVE); PROTEIN NEGATIVE (NEGATIVE); UROBILINOGEN NORMAL (NORMAL)
[2019-01-22 16:57] VITALS: BP 96/45
--- NOTE | 2019-01-22 18:30 | NUR ---
PATIENT DECIDED TO LEAVE AMA WITH RISK OF LEAVING DISCUSSSED AND VERBALIZED UNDERSTANDING. IV DISCONTINUED AND SIGNED AMA FORM. AMBULATED OUT OF FACILITY.
--- NOTE | 2019-01-25 16:29 | MORECARE ---
CASE MANAGEMENT DISCHARGE SUMMARY PATIENT: YANE JACOBSON UNIT: [id number] ADM DATE: 01/21/19 AGE: 49 : 66 SEX: M ROOM/BED: D.2235 AUTHOR: DANIELLA BRIONES PHYSICIAN: REFERRING PHYSICIAN: BART MENDEZ MD DATE OF SERVICE: 01/25/19 Discharge Plan Patient Name: YANE JACOBSON [facility] [facility] 1970 Planned Disposition: Anticipated Discharge Date: Discharge Date: 01/22/2019 Expected LOS: 0 Initial Reviewer: [email or web address] Initial Review Date: 01/21/2019 Generated: 01/25/19 5:28 pm Patient Name: YANE JACOBSON Page [phone] at 1629 All edits/amendments must be made on the electronic document DICTATION DATE: 01/25/191627 PIZZA HUT TEAM MEMBER: CYNTHIA 01/25/191627 RPT#: [id number] DC DATE:01/22/19 STATUS: DIS IN [facility] [address] [place] [address] END OF REPORT
== END 2019-01-22 18:30 | disposition left against medical advice (07) | DRG 392 ==
LOC: D.ER 10:32 → D.MS 14:35
PROVIDERS: Emergency Medicine; ADMIT Internal Medicine Nephrology; ATTEND Internal Medicine Nephrology
DX: K21.0 Gastro-esophageal reflux disease with esophagitis (principal); K22.70 Barrett's esophagus without dysplasia; M19.90 Unspecified osteoarthritis, unspecified site; I25.10 Atherosclerotic heart disease of native coronary artery without angina pectoris; D50.9 Iron deficiency anemia, unspecified

== ENCOUNTER 2019-03-10 14:34 | Emergency (ER) | payer MEDICARE ==
[~2019-03-10] VITALS: Ht 177.8 cm; Wt 75.9 kg
[~2019-03-10 14:34] MED LIST changes: +METOPROLOL TART50 MG PO
[2019-03-10 14:36] VITALS: Ht 177.8 cm; Wt 75.9 kg
[2019-03-10 15:20] LABS: BASOPHILS 0.2 % (0-2); CALC OSMOLALITY 277 mosm/kg (275-300); CALCIUM 9.2 mg/dL (8.5-10.1); CARBON DIOXIDE 35.2 mmol/L (21.0-32.0); CHLORIDE - SERUM 97 mmol/L (98-107); CREATININE - SERUM 0.9 mg/dL (0.6-1.3); EOSINOPHILS 0.8 % (0-7); GLUCOSE 117 mg/dL (74-106); HEMATOCRIT 46.6 % (42.0-54.0); HEMOGLOBIN 14.2 g/dL (13.5-17.5); IMMATURE GRANULOCYTES 0.2 % (0-5); LYMPHOCYTES 11.7 % (15-50); MCH 21.5 pg (26.0-34.0); MCHC 30.5 g/dL (31.0-37.0); MCV 70.6 fL (80.0-100.0); MEAN PLATELET VOLUME 9.1 fL (7.4-10.4); NEUTROPHILS 80.1 % (40-80); PLATELET COUNT 426 10x3/uL (130-400); POTASSIUM - SERUM 3.5 mmol/L (3.5-5.1); RDW 19.4 % (11.5-14.5); SODIUM 138 mmol/L (136-145); UREA NITROGEN 14 mg/dL (7-18); WBC 11.9 10x3/uL (4.8-10.8); eGFR NON AFRICAN AMERICAN > 90 mL/min (90-120)
[2019-03-10 15:29] LABS: ALBUMIN 4.4 g/dL (3.4-5.0); ALKALINE PHOSPHATASE 200 U/L (46-116); ALT (SGPT) 28 U/L (10-68); AMYLASE - SERUM 56 U/L (25-115); BILIRUBIN - TOTAL 0.44 mg/dL (0.2-1.3); LIPASE 208 U/L (73-393); PROTEIN - SERUM 9.2 g/dL (6.4-8.2); TROPONIN-I < 0.017 ng/mL (0.000-0.060)
[2019-03-10] MEDS ORDERED: PEPCID40 MG PO (16:45)
[2019-03-10 17:56] VITALS: BP 140/81
== END 2019-03-10 17:57 | disposition home or self-care (01) ==
LOC: D.ER 14:34
PROVIDERS: Family Medicine
DX: K92.2 Gastrointestinal hemorrhage, unspecified (principal); R10.9 Unspecified abdominal pain; D50.0 Iron deficiency anemia secondary to blood loss (chronic); K22.70 Barrett's esophagus without dysplasia; K21.9 Gastro-esophageal reflux disease without esophagitis